=== PATIENT | male | born 1980 | race Caucasian/White ===

== ENCOUNTER 2017-10-30 14:59 | Emergency (ER) | payer OTHER ==
[2017-10-30 15:35] VITALS: BP 111/64
--- NOTE | 2017-10-30 15:36 | UC ---
Throat Pain/Nasal Raymond HPI - HPI Summary HPI Summary: 37 YEAR OLD MALE PRESENTS WITH COUGH AND THROAT PAIN SINCE AUGUST. - History of Current Complaint Chief Complaint: UCRespiratory Stated Complaint: THROAT COMPLAINT SINCE AUGUST Time Seen by Provider: 10/30/17 15:36 Hx Obtained From: Patient Onset/Duration: Sudden Onset Severity: Moderate Cough: Nonproductive Associated Signs & Symptoms: Positive: Negative - Allergies/Home Medications Allergies/Adverse Reactions: Allergies Allergy/AdvReac Type Severity Reaction Status Date / Time No Known Allergies Allergy Verified 10/30/17 15:35 PMH/Surg Hx/FS Hx/Imm Hx Previously Healthy: Yes - Surgical History Surgical History: None - Family History Known Family History: Positive: Unknown - Social History Alcohol Use: None Substance Use Type: None Smoking Status (MU): Never Smoked Tobacco - Immunization History Most Recent Influenza Vaccination: NOT CURRENT Hx Tetanus, Diphtheria Vaccination: Yes Vaccination Up to Date: Yes Review of Systems Constitutional: Negative Skin: Negative Eyes: Negative ENT: Sore Throat Respiratory: Cough Cardiovascular: Negative Gastrointestinal: Negative Genitourinary: Negative Motor: Negative Neurovascular: Negative Musculoskeletal: Negative Neurological: Negative Psychological: Negative All Other Systems Reviewed And Are Negative: Yes Physical Exam Triage Information Reviewed: Yes Vital Signs: Initial Vital Signs Temp 36.9 C 10/30/17 15:31 Pulse 90 10/30/17 15:31 Resp 18 10/30/17 15:31 BP 111/64 10/30/17 15:31 Pulse Ox 100 10/30/17 15:31 Vital Signs Reviewed: Yes Eye Exam: Normal ENT: Positive: Pharyngeal erythema, Nasal congestion, Nasal drainage Dental Exam: Normal Neck exam: Normal Neck: Positive: 1 Respiratory Exam: Normal Cardiovascular Exam: Normal Abdominal Exam: Normal Musculoskeletal Exam: Normal Neurological Exam: Normal Psychological Exam: Normal Skin Exam: Normal Throat Pain/Nasal Course/Dx - Differential Dx/Diagnosis Provider Diagnoses: COUGH. SORE THROAT Discharge - Discharge Plan Condition: Stable Disposition: HOME Prescriptions: Magic M W2 Yunior/Maal/Nyst/Lido* 5 ml SWISH SPIT QID PRN #120 ml PRN Reason: Pain Ranitidine HCl [Zantac 150 Maximum Streng] 150 mg PO BID #30 tab Patient Education Materials: Acute Cough (ED) Referrals: Edward Wisdom MD [Medical Doctor] - No Primary Care Phys,NOPCP [Primary Care Provider] -
--- NOTE | 2017-11-01 13:58 | UC ---
- Progress Note Progress Note: call patient. throat cx(-).
== END 2017-10-30 16:19 | disposition home or self-care (01) ==
LOC: UCCORT 14:59
DX: R05 Cough (principal); J02.9 Acute pharyngitis, unspecified
CPT/HCPCS: 87070; 87651; 99212; G0463